=== PATIENT | male | born 1995 | race African-American/Black ===

== ENCOUNTER 2019-06-03 23:27 | Emergency (ER) | payer OTHER ==
[~2019-06-03] VITALS: Ht 167.6 cm; Wt 59.0 kg
[~2019-06-03 23:27] MED LIST: ACCUNEB SO1.25 MG/1; FLEXERIL PO; IBUPROFEN 600600 M1 PO; IBUPROFEN 800800 MG PO; NOHOMEMEDICATIONS; NORCO 5-325 TA1 EACH PO; PREDNISONE 20 M20 M1 PO; PROVENTIL HFA6.7 G1 INH; ZPAK PO
[2019-06-03] MEDS ORDERED: FLEXERIL PO (23:39)
[2019-06-03] MEDS ORDERED: IBUPROFEN 600600 M1 PO (23:39)
[2019-06-04 00:09] VITALS: BP 133/86
== END 2019-06-04 00:11 | disposition home or self-care (01) ==
LOC: ER 23:27
DX: S39.012A Strain of muscle, fascia and tendon of lower back, initial encounter (principal); S46.812A Strain of other muscles, fascia and tendons at shoulder and upper arm level, left arm, initial encounter; V89.2XXA Person injured in unspecified motor-vehicle accident, traffic, initial encounter; Y92.89 Other specified places as the place of occurrence of the external cause; Y93.89 Activity, other specified; Y99.8 Other external cause status